=== PATIENT | male | born 1975 | race Caucasian/White ===

== ENCOUNTER 2024-03-29 15:46 | Emergency (ER) | payer BC, SELFPAY ==
[2024-03-29 15:54] VITALS: BP 140/89; PULSE 80; TEMP 36.7; O2SAT 96; BMI 31.7
[2024-03-29] MEDS: LIDOCAINE HCL 1% 100 MG/10 ML MDV INJ (16:35)
--- NOTE | 2024-03-29 16:50 | ED.WOUNDLAC1 ---
HPI - Wound/Laceration General Chief Complaint: Wound/Laceration Stated Complaint: HAND LACERATION Time Seen by Provider: 03/29/24 16:19 Source: patient Mode of arrival: walk-in History of Present Illness HPI narrative: 49-year-old male presents for laceration to the left hand sustained on a sharp piece of sheet metal. It has been a long time since he had a tetanus shot. No weakness or numbness. No other injury was sustained. Related Data Home Medications ?Medication ?Instructions ?Recorded ?Confirmed No Known Home Medications 03/29/24 03/29/24 Allergies Allergy/AdvReac Type Severity Reaction Status Date / Time No Known Drug Allergies Allergy Verified 03/29/24 15:54 Review of Systems ROS Narrative A ten point review of systems is negative except as noted above. PFSH PFSH Social History Little interest or pleasure in doing things: not at all Feeling down, depressed, or hopeless: not at all Exam Narrative Exam Narrative: Nurses note and vital signs reviewed and patient is not hypoxic. General: The patient appears well and in no apparent distress. Patient is resting comfortably on cart. Skin: Warm, dry, no pallor noted. There is no rash noted. Head: Normocephalic, atraumatic Eye: Normal conjunctiva, no drainage Ears, Nose, Mouth, and Throat: oral mucosa is moist. Nares patent. Cardiovascular: Regular Rate and Rhythm Respiratory: Patient is in no distress, no accessory muscle use, lungs are clear to auscultation, no wheezing, rales or rhonchi Back: non-tender GI: Soft and nontender Musculoskeletal: There is a 3 cm curved laceration on the dorsum of his left hand. There is no active bleeding or obvious foreign body. Fingers have full range of motion, sensation intact. Neurological: A&O, normal speech Psychiatric: Cooperative Constitutional Vital Signs, click to edit/add: Last Vital Signs Temp 98.0 F 03/29/24 15:54 Pulse 80 03/29/24 15:54 Resp 18 03/29/24 15:54 BP 140/89 03/29/24 15:54 Pulse Ox 96 03/29/24 15:54 Course Vital Signs Vital signs: Vital Signs Temperature 98.0 F 03/29/24 15:54 Pulse Rate 80 03/29/24 15:54 Respiratory Rate 18 03/29/24 15:54 Blood Pressure 140/89 03/29/24 15:54 Pulse Oximetry 96 03/29/24 15:54 Temperature 98.0 F 03/29/24 15:54 Pulse Rate 80 03/29/24 15:54 Respiratory Rate 18 03/29/24 15:54 Blood Pressure 140/89 03/29/24 15:54 Pulse Oximetry 96 03/29/24 15:54 MDM - Wound/Laceration MDM Narrative Medical decision making narrative: Sutures are to be removed in a week and tetanus status is updated. Findings were discussed with the patient. Differential Diagnosis Differential diagnosis: Likely laceration Discharge Plan Discharge Chief Complaint: Wound/Laceration Clinical Impression: Laceration of left hand Patient Disposition: Home, Self-Care Time of Disposition Decision: 16:49 Condition: Good Mode of Transportation: Private Vehicle Prescriptions / Home Meds: No Action No Known Home Medications Print Language: Romanian Instructions: Laceration (ED) Additional Instructions: Sutures to be removed in 7 days Referrals: Physician,Non-Staff, MD [Primary Care Provider] - 1 week Procedures ED Procedure Instructions Procedures Procedures: The following procedure was performed by me. Local infiltration was carried out with 1% lidocaine without epinephrine resulting in complete skin anesthesia. The area was prepped with Betadine x 3 and draped sterilely and it was explored for foreign bodies and none were found. The wound was then closed with four 4-0 Ethilon sutures resulting in good skin reapproximation and no complications. He tolerated the procedure well.
[2024-03-29] MEDS: ADACEL DIPH,PERTUSS(ACELL),TET VAC/PF 0.5 ML ADULT SYRINGE IM (17:10)
== END 2024-03-29 17:19 | disposition home or self-care (01) ==
PROVIDERS: Emergency Provider Emergency Medicine
DX: S61.412A Laceration without foreign body of left hand, initial encounter (principal); W45.8XXA Other foreign body or object entering through skin, initial encounter; W26.8XXA Contact with other sharp object(s), not elsewhere classified, initial encounter; Z23 Encounter for immunization
CPT/HCPCS: 12002; 90471; 90715; 99284